=== PATIENT | male | born 1965 | race American Indian/Alaskan Native ===

== ENCOUNTER 2017-06-22 11:29 | Emergency (ER) | payer OTHER ==
[2017-06-22 12:39] VITALS: BP 120/76
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
== END 2017-06-22 14:20 | disposition home or self-care (01) ==
LOC: ED 11:29
DX: M54.5 Low back pain (principal); M25.511 Pain in right shoulder; V87.7XXA Person injured in collision between other specified motor vehicles (traffic), initial encounter; Y93.89 Activity, other specified; Y92.89 Other specified places as the place of occurrence of the external cause; Y99.8 Other external cause status
CPT/HCPCS: 99283

== ENCOUNTER 2017-10-21 09:41 | Emergency (ER) | payer OTHER ==
--- NOTE | 2017-10-21 11:57 | Emergency Department Report ---
HPI - General Chief Complaint: GI Bleed Time Seen by Provider: 10/21/17 11:49 - HPI HPI: 52-year-old -[place] male presents to the emergency department with a complaint of some rectal bleeding of bright red blood. He says that he has noticed it intermittently over the past 6 months but he had one episode each of the last 2 mornings. This morning he says there was a moderate amount of bleeding. He has no abdominal or rectal pain. He says that he used to notice it occurring the morning after he drank some alcohol. He denies any past medical history. He has not taken any medications for his symptoms prior to presentation. ED Past Medical Hx - Past Medical History Previous Medical History?: No - Surgical History Past Surgical History?: No - Social History Smoking Status: Never Smoker Substance Use Type: Alcohol - Medications Home Medications: Home Medications Medication Instructions Recorded Confirmed Last Taken Type HYDROcodone/APAP 5-325 [[place] 1 each PO Q6HR PRN #15 tablet 06/22/17 Unknown Rx 5/325] Ibuprofen [Motrin] 600 mg PO Q8H PRN #20 tablet 06/22/17 Unknown Rx methOCARBAMOL [Robaxin TAB] 500 mg PO Q6H PRN #15 tablet 06/22/17 Unknown Rx Hydrocortisone/Pramoxine 1 applicatio RC BID #1 bottle 10/21/17 Unknown Rx [Proctofoam-Hc Foam] ED Review of Systems ROS: Stated complaint: BLOOD IN STOOL Other details as noted in HPI Comment: All other systems reviewed and negative Constitutional: denies: chills, fever Eyes: denies: eye pain, eye discharge, vision change ENT: denies: ear pain, throat pain Respiratory: denies: cough, shortness of breath, wheezing Cardiovascular: denies: chest pain, palpitations Gastrointestinal: other (Bright red Blood per rectum). denies: abdominal pain, melena Genitourinary: denies: urgency, dysuria Musculoskeletal: denies: back pain, joint swelling, arthralgia Skin: denies: rash, lesions Neurological: denies: headache, weakness, paresthesias Physical Exam - Physical Exam Vital Signs: Vital Signs 10/21/17 09:43 Temperature 98.5 F Pulse Rate 82 Respiratory 18 Rate Blood Pressure 136/85 O2 Sat by Pulse 98 Oximetry Physical Exam: GENERAL: The patient is well-developed well-nourished. HENT: Normocephalic. Atraumatic. Patient has moist mucous membranes. EYES: Extraocular motions are intact. NECK: Supple. Trachea is midline. CHEST/LUNGS: Clear to auscultation. There is no respiratory distress noted. HEART/CARDIOVASCULAR: Regular. There is no tachycardia. There is no murmur. ABDOMEN: Abdomen is soft, nontender. Patient has normal bowel sounds. There is no abdominal distention. SKIN: Skin is warm and dry. NEURO: The patient is awake, alert, and oriented. The patient is cooperative. The patient has no focal neurologic deficits. The patient has normal speech and gait. MUSCULOSKELETAL: There is no tenderness or deformity. There is no limitation range of motion. There is no evidence of acute injury. RECTAL: There is no gross blood seen. The patient has a nonthrombosed external hemorrhoid at the 3 o'clock position that is about 1 cm in diameter. There was only a small amount of stool obtained on rectal examination but was positive on guaiac testing. ED Course Vital Signs 10/21/17 09:43 Temperature 98.5 F Pulse Rate 82 Respiratory 18 Rate Blood Pressure 136/85 O2 Sat by Pulse 98 Oximetry - Reevaluation(s) Reevaluation #1: 10/21/17 12:47 Rectal examination was done with toby Hudson at bedside as a recoil spring winder ED Medical Decision Making - Lab Data Result diagrams: 10/21/17 12:01 10/21/17 12:01 - Medical Decision Making The patient presents with the complaint of rectal bleeding that has been going on intermittently for 6 months but increased over the past few days. No abdominal or rectal pains. Vital signs stable including being afebrile. Labs are unremarkable including no signs of anemia or any leukocytosis. On examination the patient has a nonthrombosed external hemorrhoid and will be treated with some Proctofoam. However he understands that despite this hemorrhoid being the most likely reason for the rectal bleeding, that he will need to follow-up with a furnace feeder and most likely have a colonoscopy in the near future for a colon cancer screening and secondary to the rectal bleeding. He will return to the ER with any worsening of his symptoms or any acute distress. - Differential Diagnosis hemorrhoid, anal fissure, malignancy, diverticulosis Critical Care Time: No Critical care attestation.: If time is entered above; I have spent that time in minutes in the direct care of this critically ill patient, excluding procedure time. ED Disposition Clinical Impression: Rectal bleeding Hemorrhoid Qualifiers: Hemorrhoid type: unspecified Qualified Code(s): K64.9 - Unspecified hemorrhoids Disposition: TO HOME OR SELFCARE Is pt being admited?: No Condition: Stable Instructions: Hemorrhoids (ED), Rectal Bleeding (ED) Additional Instructions: As we talked about, despite the fact that you have a hemorrhoid and it may be the cause of the rectal bleeding, it is imperative that you follow-up with a furnace feeder and she may need a colonoscopy in the near future. I have given you a referral for a local furnace feeder, Dr. Licona, who is part of a larger gastroenterology group. Return to the emergency Department with any worsening of your symptoms or any acute distress. Prescriptions: Hydrocortisone/Pramoxine [Proctofoam-Hc Foam] 1 applicatio RC BID #1 bottle Referrals: RENAE LICONA MD [Staff Physician] - 2-3 Days PRIMARY CARE, [Primary Care Provider] - 2-3 Days Forms: Accompanied Note Time of Disposition: 12:51
[2017-10-21 12:10] LABS: Basophils % (Auto) 0.2 % (0.0-1.8); Eosinophils # (Auto) 0.2 K/mm3 (0.0-0.4); Eosinophils % (Auto) 4.9 % (0.0-4.3); Hematocrit 44.3 % (35.5-45.6); Hemoglobin 14.8 gm/dl (11.8-15.2); Lymphocytes # (Auto) 1.6 K/mm3 (1.2-5.4); Lymphocytes % (Auto) 32.7 % (13.4-35.0); Mean Corpuscular HGB Conc 33 % (32-34); Mean Corpuscular Hemoglobin 30 pg (28-32); Mean Corpuscular Volume 90 fl (84-94); Monocytes # (Auto) 0.4 K/mm3 (0.0-0.8); Monocytes % (Auto) 7.8 % (0.0-7.3); Platelet Count 259 K/mm3 (140-440); Red Blood Count 4.96 M/mm3 (3.65-5.03); Red Cell Distribution Width 13.5 % (13.2-15.2)
[2017-10-21 12:20] LABS: BUN/Creatinine Ratio 11; Blood Urea Nitrogen 11 mg/dL (9-20); Hemolysis Index 11
[2017-10-21 13:00] VITALS: BP 136/76
== END 2017-10-21 12:58 | disposition home or self-care (01) ==
LOC: ED 09:41
DX: K64.9 Unspecified hemorrhoids (principal)
CPT/HCPCS: 36415; 80048; 85025; 99283

== ENCOUNTER 2020-02-19 12:27 | Emergency (ER) | payer SELFPAY ==
[2020-02-19 13:06] VITALS: BP 143/90
--- NOTE | 2020-02-19 15:39 | Emergency Department Report ---
ED ENT HPI - General Chief complaint: Dental/Oral Stated complaint: TOOTHACHE Time Seen by Provider: 02/19/20 15:07 Source: patient Mode of arrival: Ambulatory Limitations: No Limitations - History of Present Illness Initial comments: 54 yr old male presents to ED c/o dental pain. Pt states that for the past 3 days he has been having pain to entire lower front teeth. He reports associated swelling. He states he has been taking tylenol without relief. He denies any injury. He reports no difficulty swallowing, trismus drooling or any other symptoms. MD complaint: tooth pain -: Gradual, days(s) (3) - Related Data Previous Rx's Medication Instructions Recorded Last Taken Type Acetaminophen/Codeine [Tylenol 1 tab PO Q4HR PRN #12 tablet 02/19/20 Unknown Rx /Codeine # 3 tab] Amoxicillin [Trimox CAP] 500 mg PO Q12H #20 capsule 02/19/20 Unknown Rx Ibuprofen [Motrin] 800 mg PO Q8HR PRN #30 tablet 02/19/20 Unknown Rx Allergies Allergy/AdvReac Type Severity Reaction Status Date / Time No Known Allergies Allergy Unverified 06/22/17 12:35 ED Dental HPI - General Chief complaint: Dental/Oral Stated complaint: TOOTHACHE Time Seen by Provider: 02/19/20 15:07 Source: patient Mode of arrival: Ambulatory Limitations: No Limitations - Related Data Previous Rx's Medication Instructions Recorded Last Taken Type Acetaminophen/Codeine [Tylenol 1 tab PO Q4HR PRN #12 tablet 02/19/20 Unknown Rx /Codeine # 3 tab] Amoxicillin [Trimox CAP] 500 mg PO Q12H #20 capsule 02/19/20 Unknown Rx Ibuprofen [Motrin] 800 mg PO Q8HR PRN #30 tablet 02/19/20 Unknown Rx Allergies Allergy/AdvReac Type Severity Reaction Status Date / Time No Known Allergies Allergy Unverified 06/22/17 12:35 ED Review of Systems ROS: Stated complaint: TOOTHACHE Other details as noted in HPI Comment: All other systems reviewed and negative Constitutional: denies: chills, fever ENT: dental pain. denies: ear pain, throat pain, congestion Respiratory: denies: cough, shortness of breath, wheezing Cardiovascular: denies: chest pain, palpitations Gastrointestinal: denies: abdominal pain, nausea, diarrhea Genitourinary: denies: urgency, dysuria Musculoskeletal: denies: back pain, joint swelling, arthralgia Skin: denies: rash, lesions Neurological: denies: headache, weakness, paresthesias Psychiatric: denies: anxiety, depression ED Past Medical Hx - Past Medical History Previous Medical History?: No - Surgical History Past Surgical History?: No - Social History Smoking Status: Never Smoker Substance Use Type: None - Medications Home Medications: Home Medications Medication Instructions Recorded Confirmed Last Taken Type Acetaminophen/Codeine [Tylenol 1 tab PO Q4HR PRN #12 tablet 02/19/20 Unknown Rx /Codeine # 3 tab] Amoxicillin [Trimox CAP] 500 mg PO Q12H #20 capsule 02/19/20 Unknown Rx Ibuprofen [Motrin] 800 mg PO Q8HR PRN #30 tablet 02/19/20 Unknown Rx ED Physical Exam - General Limitations: No Limitations General appearance: alert, in no apparent distress - Head Head exam: Present: atraumatic, normocephalic, normal inspection - Eye Eye exam: Present: normal appearance, PERRL, EOMI - ENT ENT exam: Present: normal exam, mucous membranes moist, other (There is Mod ttp to gum associated with right first premolar with associated mild swelling and fluctuance. No external jaw swelling or cellulitis noted. No trismus or drooling. ) - Neck Neck exam: Present: normal inspection, full ROM. Absent: tenderness - Respiratory Respiratory exam: Present: normal lung sounds bilaterally - Cardiovascular Cardiovascular Exam: Present: regular rate, normal rhythm, normal heart sounds - Neurological Exam Neurological exam: Present: alert, oriented X3, CN II-XII intact - Psychiatric Psychiatric exam: Present: normal affect, normal mood - Skin Skin exam: Present: intact ED Course Vital Signs 02/19/20 13:02 Temperature 98.1 F Pulse Rate 69 Respiratory 18 Rate Blood Pressure 143/90 O2 Sat by Pulse 98 Oximetry Critical care attestation.: If time is entered above; I have spent that time in minutes in the direct care of this critically ill patient, excluding procedure time. ED Disposition Clinical Impression: Dental abscess Disposition: TO HOME OR SELFCARE Is pt being admited?: No Does the pt Need Aspirin: No Condition: Stable Instructions: Dental Abscess Additional Instructions: take the medications as prescribed. Follow up with the dentist as discussed. Return to ED if symptoms changes or worsens. Prescriptions: Ibuprofen [Motrin] 800 mg PO Q8HR PRN #30 tablet PRN Reason: Pain , Severe (7-10) Amoxicillin [Trimox CAP] 500 mg PO Q12H #20 capsule Acetaminophen/Codeine [Tylenol /Codeine # 3 tab] 1 tab PO Q4HR PRN #12 tablet PRN Reason: Pain Referrals: PEDRITO THOMAS MD [Staff Physician] - 3-5 Days Time of Disposition: 15:39
== END 2020-02-19 16:11 | disposition home or self-care (01) ==
LOC: ED 12:27
DX: K04.7 Periapical abscess without sinus (principal); Z79.1 Long term (current) use of non-steroidal anti-inflammatories (NSAID); Z79.2 Long term (current) use of antibiotics
CPT/HCPCS: 99282